=== PATIENT | male | born 1955 | race Caucasian/White ===

== ENCOUNTER 2020-06-22 10:34 | Outpatient (CLI) | payer MEDICARE, BC ==
--- NOTE | 2020-06-22 10:57 | XRAY Report ---
PROCEDURE: Foot 3 View LT INDICATIONS: PAIN IN LT FOOT TECHNIQUE: 3 views of the foot were acquired. COMPARISON: None. FINDINGS: Bones: No fractures or dislocations. No suspicious bony lesions. Soft tissues: No tibiotalar joint effusion. Achilles tendon appears normal. IMPRESSION: No trauma found, source of new left-sided foot pain is not identified. Reviewed by: Catrachito Martinez MD on 06/22/2020 10:56 AM PDT Approved by: Catrachito Martinez MD on 06/22/2020 10:56 AM PDT Station ID: [id number]
== END 2020-06-22 10:35 | disposition home or self-care (01) ==
LOC: DI.S 10:34
PROVIDERS: ATTEND Family Medicine
DX: M79.672 Pain in left foot (principal)

== ENCOUNTER 2020-07-27 14:21 | Outpatient (CLI) | payer MEDICARE, BC ==
[2020-07-27] MEDS ORDERED: IOVERSOL 320 100 ML VIAL IVP ONE ×2 (14:34→17:35)
[2020-07-27] MEDS ORDERED: IOVERSOL 320 50 ML VIAL ONE (14:34)
[2020-07-27 14:51] LABS: CALCIUM 9.3 mg/dL (8.5-10.3); CREATININE 0.9 mg/dL (0.6-1.2)
--- NOTE | 2020-07-27 16:02 | CT Report ---
PROCEDURE: Abdomen/Pelvis W INDICATIONS: ABDOMINAL PAIN CONTRAST: IV CONTRAST: Optiray 320 ml: 100 PO CONTRAST: Optiray 320 ml50 TECHNIQUE: After the administration of intravenous contrast, 5 mm thick sections acquired from the diaphragms to the symphysis. 5 mm thick coronal and sagittal reformats were acquired. For radiation dose reducti on, the following was used: automated exposure control, adjustment of mA and/or kV according to lisa ent size. COMPARISON: None. FINDINGS: Image quality: Excellent. ABDOMEN: Lung bases: Lung bases are clear. Heart size is normal. Coronary atherosclerosis Solid organs: Liver and spleen are normal in size and enhancement. Gallbladder appears normally dis tended without wall thickening or adjacent inflammatory change. Biliary system is non dilated. Panc reas enhances normally. No adrenal nodules. No hydronephrosis or urinary tract calculus. Peritoneum and bowel: Sigmoid diverticulosis. And anterolateral aspect of the inferior most abdomen, just medial to the left inguinal canal, there is a focus of fat stranding and fluid adjacent to a villa rt segment of the sigmoid. This is consistent with a small focus of diverticulitis. There is no other pericolonic or mesenteric inflammatory change. No findings of obstruction. Nodes and vessels: No retroperitoneal or mesenteric adenopathy by size criteria. Aorta and inferior vena cava are normal in size. Miscellaneous: No ventral hernia. PELVIS: Genitourinary: Bladder wall thickness is normal. Prostate unremarkable. Miscellaneous: Bilateral small fat-containing inguinal hernias. Bones: No suspicious bony lesions. No vertebral body compression fractures. IMPRESSION: Findings consistent with uncomplicated sigmoid diverticulitis. Follow-up to clinical resolution is re commended. Colonoscopy should be performed upon resolution of acute inflammation to help exclude the presence of an underlying mass. Findings were discussed with Dr. Monica Muniz M.D. at 1600 PST. Reviewed by: Bull Gonzalez MD on 07/27/2020 4:01 PM PDT Approved by: Bull Gonzalez MD on 07/27/2020 4:01 PM PDT Station ID: [id number]
[2020-07-27] MEDS ORDERED: IOVERSOL 320 50 ML VIAL PO ONE (17:35)
== END 2020-07-27 14:22 | disposition home or self-care (01) ==
LOC: DI 14:21
PROVIDERS: ATTEND Nurse Practitioner Family
DX: K57.32 Diverticulitis of large intestine without perforation or abscess without bleeding (principal)
CPT/HCPCS: 36415; 74177; 80048; Q9967

== ENCOUNTER 2020-09-17 09:09 | Day surgery (SDC) | payer MEDICARE, BC ==
[~2020-09-17 09:09] MED LIST: LACTATED RINGERS 1,000 ML IV ONE
[2020-09-17] MEDS ORDERED: fentaNYL 250 MCG/5 ML VIAL IVP ONE (09:10)
[2020-09-17] MEDS ORDERED: MIDAZOLAM 2 MG/2 ML VIAL IVP ONE (09:10)
[2020-09-17] MEDS ORDERED: LACTATED RINGERS 1,000 ML IV ONE (11:20)
[2020-09-17 11:40] VITALS: BP 105/82
== END 2020-09-17 09:10 | disposition home or self-care (01) ==
LOC: SDS 09:09
PROVIDERS: ATTEND Surgery
DX: Z09 Encounter for follow-up examination after completed treatment for conditions other than malignant neoplasm (principal); K57.30 Diverticulosis of large intestine without perforation or abscess without bleeding; K40.20 Bilateral inguinal hernia, without obstruction or gangrene, not specified as recurrent; I10 Essential (primary) hypertension; F10.11 Alcohol abuse, in remission; F17.200 Nicotine dependence, unspecified, uncomplicated; Z87.19 Personal history of other diseases of the digestive system
CPT/HCPCS: 45378; J3010; J7120

== ENCOUNTER 2020-11-12 20:05 | Outpatient (CLI) | payer MEDICARE, BC | END 2020-11-12 20:06 | disposition home or self-care (01) | LOC: COV 20:05 | PROVIDERS: ATTEND Surgery | DX: Z01.812 Encounter for preprocedural laboratory examination (principal); K40.90 Unilateral inguinal hernia, without obstruction or gangrene, not specified as recurrent; Z20.822 Contact with and (suspected) exposure to COVID-19 ==

== ENCOUNTER 2020-11-16 07:46 | Day surgery (SDC) | payer MEDICARE, BC ==
[2020-11-16] MEDS ORDERED: LACTATED RINGERS 1,000 ML IV ONE ×2 (08:00→10:50)
--- NOTE | 2020-11-16 08:43 | ANESTHESIA ---
Pre-Anesthesia VS, & Labs - Diagnosis right inguinal hernia - Procedure right inguinal hernia repair Vital Signs: Temp Pulse Resp BP Pulse Ox 36.2 C L 52 L 16 150/88 H 97 11/16/20 08:00 11/16/20 08:00 11/16/20 08:00 11/16/20 08:00 11/16/20 08:00 Height: 5 ft 8 in Weight (kg): 86.3 kg Body Mass Index: 28.9 BMI Classification: Overweight - NPO >8 hours Home Medications and Allergies Lovastatin 40 mg PO DAILY 09/17/20 Metoprolol Succinate [Toprol Xl] 50 mg PO DAILY 09/17/20 Allergies/Adverse Reactions: Allergies Allergy/AdvReac Type Severity Reaction Status Date / Time Penicillins Allergy Hives Verified 05/09/15 12:18 Anes History & Medical History - Anesthetic History Anesthesia Complications: reports: No previous complications - Medical History Cardiovascular: reports: Hypertension, High cholesterol Pulmonary: reports: None Gastrointestinal: reports: GERD (with certain foods), Diverticulitis Urinary: reports: None Neuro: reports: None Musculoskeletal: reports: Osteoarthritis, Chronic back pain Endocrine/Autoimmune: reports: None Blood Disorders: reports: None Skin: reports: None Smoking Status: Former smoker (quit 10 years ago. 38 year pack history) Psychosocial: reports: Alcohol (recovering alcoholic), Cannabis (daily use) History of Cancer?: No - Surgical History General: Colonoscopy, Other (Left IHR) Exam General: Alert, Oriented x3, Cooperative, No acute distress Dental: WNL, Other (braces) Mouth Openin Fingerbreadth Neck Mobility: Normal Mallampati classification: II Thyromental Distance: 4-6 cm Respiratory: Lungs clear, Normal breath sounds, No respiratory distress, No accessory muscle use Cardiovascular: Regular rate, Normal S1, Normal S2, No murmurs Mental/Cognitive Status: Alert/Oriented X3, Normal for patient Plan Anesthesia Type: General Consent for Procedure(s) Verified and Reviewed: Yes Code Status: Attempt Resuscitation ASA classification: 2-Mild systemic disease Is this case an emergency?: No
[2020-11-16] MEDS ORDERED: ceFAZolin 2 GM/50 ML 2 GM/50 ML BAG IV ONE (08:51)
[2020-11-16] MEDS ORDERED: ONDANSETRON 4 MG/2 ML VIAL IVP PRN ×2 (09:02→10:18)
[2020-11-16] MEDS ORDERED: fentaNYL 100 MCG/2 ML VIAL IVP PRN (09:02)
[2020-11-16] MEDS ORDERED: NALOXONE 0.4 MG/ML VIAL IVP PRN (09:02)
[2020-11-16] MEDS ORDERED: MORPHINE 2 MG/ML CARPUJECT IVP PRN (09:02)
[2020-11-16] MEDS ORDERED: HYDROmorphone 0.5 MG/0.5 ML SYRINGE IVP PRN (09:02)
[2020-11-16] MEDS ORDERED: ATROPINE ABBOJECT 1 MG/10 ML SYRINGE IVP PRN (09:02)
[2020-11-16] MEDS ORDERED: BUPIVACAINE 0.5%-EPI 1:200000 PF 30 ML VIAL SUBQ ONE ×2 (09:03→10:00)
[2020-11-16] MEDS ORDERED: LIDOCAINE 1% 50 ML MDV SUBQ ONE ×3 (09:04)
[2020-11-16] MEDS ORDERED: BUPIVACAINE 0.5%-EPI 1:200000 PF 30 ML VIAL ONE (09:10)
[2020-11-16] MEDS ORDERED: LIDOCAINE 1% 50 ML MDV ONE (09:10)
[2020-11-16] MEDS ORDERED: ceFAZolin 1 GM VIAL ONE (09:10)
[2020-11-16] MEDS ORDERED: DEXAMETHASONE 4 MG/ML VIAL ONE (09:15)
[2020-11-16] MEDS ORDERED: ROCURONIUM 50 MG/5 ML VIAL ONE (09:15)
[2020-11-16] MEDS ORDERED: SUGAMMADEX 200 MG/2 ML VIAL IVP ONE (09:15)
[2020-11-16] MEDS ORDERED: LIDOCAINE-MPF 2% 5 ML VIAL ONE (09:15)
[2020-11-16] MEDS ORDERED: PROPOFOL 200 MG/20 ML VIAL IVP ONE (09:15)
[2020-11-16] MEDS ORDERED: MIDAZOLAM 2 MG/2 ML VIAL ONE (09:18)
[2020-11-16] MEDS ORDERED: KETOROLAC 30 MG/ML VIAL ONE (09:46)
[2020-11-16] MEDS ORDERED: ceFAZolin 1 GM VIAL IR ONE (09:52)
[2020-11-16] MEDS ORDERED: LACTATED RINGERS 1,000 ML IV SCH (10:00)
[2020-11-16] MEDS ORDERED: GLYCOPYRROLATE 1 MG/5 ML VIAL ONE (10:11)
[2020-11-16] MEDS ORDERED: NEOSTIGMINE 1 MG/1 ML 10 ML MDV ONE (10:11)
--- NOTE | 2020-11-16 10:17 | OPERATIVE REPORT ---
Operative Report - General Procedure Date: 11/16/20 Planned Procedure: Right inguinal hernia repair Pre-Op Diagnosis: Symptomatic right inguinal hernia Procedure Performed: Right inguinal hernia repair Post Op Diagnosis: Same - Procedure Note Primary Surgeon: Delphine Anesthesia Provider: Sia Pearl CRNA Anesthesia Technique: General LMA, Local Pathology: None Estimated Blood Loss (mL): 5 Findings: Moderate indirect right inguinal hernia Complications: None apparent - Other Other Information/Narrative: After obtaining informed consent, the patient is brought to the operating room and placed in the supine position on the operating table. Following successful induction of general endotracheal anesthesia, appropriate padding of all bony prominences, and placement of appropriate monitors, the abdomen was prepped and draped in the standard surgical fashion. A timeout was held per scope protocol. All elements of the surgical safety checklist were followed before, during, and after the procedure. We began the procedure by infiltrating a mixture of local anesthetics medial to the anterior superior iliac spine on the right. This was done to create an ileal inguinal nerve block. We then selected a site for an incision in the right lower quadrant just superior and lateral to the right pubic tubercle. This area was anesthetized with additional local anesthetic and an incision was created here.The incision was carried down through the skin and subcutaneous tissue to reveal the fascia of the external oblique aponeurosis. Retractor was placed and the aponeurosis was opened in direction of its fibers. The ilioinguinal nerve was immediately identified. We continued by identifying the spermatic cord and gently encircling it with a Marilyn drain. The hernia sac was carefully dissected free from the cord structures and was noted to be in the inferior medial position. The sac was in the indirect position. We carefully dissected the spermatic cord from the sac. The hernia sac was then placed back into the abdominal cavity. We elected to repair the hernia with a large Prolene hernia system mesh implant. This was dipped in Ancef containing solution and then deployed into the defect. The posterior leaflet was straightened and flattened in the preperitoneal space. The anterior leaflet was then nicked medially to provide a place for the spermatic cord and then closed with a Vicryl suture. The more inferior aspect was then sewn to Fam's ligament medially. Laterally it was tucked under the external beak aponeurosis. The wound was checked for hemostasis and irrigated with warm saline solution. It was aspirated free of all fluid and particulate matter. The extra oblique aponeurosis was then closed with a running locking Vicryl suture Charito's fascia was closed with Vicryl suture and Monocryl stitches were placed in the skin. All sponge, needle, and instrument counts were correct at the conclusion of the case. The patient was allowed awaken from anesthesia without difficulty and taken to the postanesthesia care unit in good condition.
[2020-11-16] MEDS ORDERED: oxyCODONE 5 MG TABLET PO PRN (10:18)
[2020-11-16] MEDS ORDERED: ACETAMINOPHEN 325 MG TABLET PO PRN (10:18)
[2020-11-16] MEDS ORDERED: IBUPROFEN 600 MG TABLET PO PRN (10:18)
--- NOTE | 2020-11-16 10:42 | ANESTHESIA POST OP EVALUATION ---
Anesthesia Post Eval - Post Anesthesia Eval Vitals: Last Vital Signs Temp 36.5 C 11/16/20 10:40 Pulse 64 11/16/20 10:40 Resp 20 11/16/20 10:40 BP 152/97 H 11/16/20 10:40 Pulse Ox 98 11/16/20 10:40 CV Function Including HR & BP: positive: Stable Pain Control: positive: Satisfactory Nausea & Vomiting: positive: Negative Mental Status: positive: Baseline Respiratory Status: Airway Patent Hydration Status: Satisfactory Anesthesia Complications: positive: None
[2020-11-16 11:17] VITALS: BP 143/91
== END 2020-11-16 07:47 | disposition home or self-care (01) ==
LOC: SDS 07:46
PROVIDERS: ATTEND Surgery
DX: K40.90 Unilateral inguinal hernia, without obstruction or gangrene, not specified as recurrent (principal); I10 Essential (primary) hypertension; Z87.891 Personal history of nicotine dependence; E66.3 Overweight; Z68.28 Body mass index [BMI] 28.0-28.9, adult
CPT/HCPCS: 49505; C1781; J0690; J7120

== ENCOUNTER 2022-11-10 08:14 | Outpatient (CLI) | payer MEDICARE, BC ==
--- NOTE | 2022-11-10 10:04 | Ultrasound Report ---
PROCEDURE: Aorta Screening INDICATIONS: EX SMOKER TECHNIQUE: Real time scanning was performed of the aorta and iliac arteries, with image documentatio n. COMPARISON: None FINDINGS: Aorta: Proximal aortic diameter measures 2.6 x 2.2 cm. Mid-aorta measures 2.2 x 2.1 cm. Distal aor tic diameter is 1.9 x 1.8 cm. Iliac arteries: Right common iliac artery measures 1.3 cm. Left common iliac artery measures 1.4 cm . IMPRESSION: No abdominal aortic aneurysm. Proximal aorta measures 2.6 cm. Consider 5 year follow-up. There is ath erosclerosis. Reviewed by: Prasanna Qureshi MD on 11/10/2022 10:02 AM PST Approved by: Prasanna Qureshi MD on 11/10/2022 10:02 AM PST Station ID: [id number]
--- NOTE | 2022-11-10 11:38 | CT Report ---
PROCEDURE: Low Dose Lung Cancer Screen INDICATIONS: EX SMOKER TECHNIQUE: Noncontrast low-dose axial images were acquired from the pulmonary apices to the posterior costophren ic angles. Multiplanar MIP reformats were then reconstructed. For radiation dose reduction, the follo wing was used: automated exposure control, adjustment of mA and/or kV according to patient size. COMPARISON: None. FINDINGS: Image quality: Excellent. Lungs and pleura: No suspicious lung nodules. There are subpleural scars and atelectasis in the righ t middle lobe, lingula and both lower lobes. Mediastinum: Heart size is normal. Moderate coronary artery calcification. No pericardial effusion. No mediastinal adenopathy by size criteria. Thoracic aorta and central pulmonary arteries are norm al in size. Esophagus is normal in caliber. Small hiatal hernia. Bones and chest wall: No suspicious bony lesions. No vertebral body compression fractures. No axil angela or supraclavicular adenopathy by size criteria. The thyroid is normal in size and there are no incidental findings. Abdomen: Visualized upper abdomen solid organs and bowel loops appear normal in the absence of contr ast. IMPRESSION: 1. No suspicious lung nodules. ACR BI-RADS Category 1. Recommend annual screening up CT in 12 months. 2. Moderate coronary calcification. Reviewed by: Carline Garcia MD on 11/10/2022 11:37 AM PST Approved by: Carline Garcia MD on 11/10/2022 11:37 AM PST Station ID: [id number]
--- NOTE | 2022-11-10 12:24 | Ultrasound Report ---
PROCEDURE: Pelvic Limited or F/U INDICATIONS: INGUINAL PAIN TECHNIQUE: Real-time transabdominal scanning was performed of the right inguinal region, with image documentatio n. COMPARISON: CT abdomen and pelvis 07/27/2020. FINDINGS: No right inguinal hernia is seen. Possible mass. IMPRESSION: No right inguinal hernia is seen. Reviewed by: Abhinav Alexander MD on 11/10/2022 12:22 PM PST Approved by: Abhinav Alexander MD on 11/10/2022 12:22 PM PST Station ID: [id number]
== END 2022-11-10 08:15 | disposition home or self-care (01) ==
LOC: DI 08:14
PROVIDERS: ATTEND Nurse Practitioner Family
DX: Z12.2 Encounter for screening for malignant neoplasm of respiratory organs (principal); Z13.6 Encounter for screening for cardiovascular disorders; R10.2 Pelvic and perineal pain; I25.10 Atherosclerotic heart disease of native coronary artery without angina pectoris; Z87.891 Personal history of nicotine dependence

== ENCOUNTER 2022-11-16 10:39 | Outpatient (CLI) | payer MEDICARE, BC ==
[2022-11-16] MEDS ORDERED: DIATRIZOATE MEGLU/DIATRIZO SOD 30 ML BOTTLE PO ONE ×2 (11:05→14:58)
[2022-11-16] MEDS ORDERED: iohexoL-300 100 ML VIAL ONE (11:05)
[2022-11-16 11:23] LABS: POTASSIUM 4.3 mmol/L (3.5-5.0)
[2022-11-16] MEDS ORDERED: iohexoL-300 100 ML VIAL IVP ONE (14:58)
--- NOTE | 2022-11-17 10:28 | CT Report ---
PROCEDURE: ABDOMEN/PELVIS W INDICATIONS: GROIN MASS CONTRAST: omni 300 100ml TECHNIQUE: After the administration of oral and intravenous contrast, 5 mm thick sections acquired from the diap hragms to the symphysis. 5 mm thick coronal and sagittal reformats were acquired. For radiation dos e reduction, the following was used: automated exposure control, adjustment of mA and/or kV accordin g to patient size. COMPARISON: CT of abdomen and pelvis with, 07/27/2020. Ultrasound pelvis, 11/10/2022 FINDINGS: Image quality: Excellent. ABDOMEN: Lung bases: There are dependent atelectasis at lung bases. Heart size is normal. Solid organs: There is a 1 cm indeterminate hypodense nodule in segment 4, unchanged since the last exam, most likely a cyst. Mild hepatic steatosis. Liver is normal in size. Spleen is normal in size a nd enhancement. There is a small calcified gallstone in gallbladder. Biliary system is non dilated. Pancreas enhances normally. No adrenal nodules. There are bilateral parapelvic renal cysts. Kidneys demonstrate normal size and enhancement, without hydronephrosis. Peritoneum and bowel: Bowel loops demonstrate normal wall thickness and caliber. Mild diverticulosis . No acute diverticulitis. No free fluid or air. Nodes and vessels: There is a 1 cm mesenteric lymph node in the right abdomen (series 3 image 42), u nchanged since 07/27/2020. No retroperitoneal adenopathy by size criteria. Aorta and inferior vena ca va are normal in size. Miscellaneous: No ventral hernias. PELVIS: Genitourinary: Bladder wall thickness is normal. Miscellaneous: No inguinal adenopathy. Small fat-containing right inguinal hernia. Bones: No suspicious bony lesions. No vertebral body compression fractures. Mild levoscoliosis. Se nate degenerative disc and facet disease in lumbar spine. IMPRESSION: 1. No mass is identified in abdomen or pelvis. 2. A 1 cm mesenteric lymph node in the right abdomen, unchanged, most likely reactive. 3. Cholelithiasis. 4. Mild hepatic steatosis. 5. Mild diverticulosis without diverticulitis. Bilateral parapelvic renal cysts. 6. Small fat-containing right inguinal hernia. Reviewed by: Carline Garcia MD on 11/17/2022 10:27 AM PST Approved by: Carline Garcia MD on 11/17/2022 10:27 AM PST Station ID: [id number]
== END 2022-11-16 10:40 | disposition home or self-care (01) ==
LOC: LAB 10:39
PROVIDERS: ATTEND Nurse Practitioner Family
DX: R19.03 Right lower quadrant abdominal swelling, mass and lump (principal); K80.20 Calculus of gallbladder without cholecystitis without obstruction; K76.0 Fatty (change of) liver, not elsewhere classified; K57.90 Diverticulosis of intestine, part unspecified, without perforation or abscess without bleeding; K40.90 Unilateral inguinal hernia, without obstruction or gangrene, not specified as recurrent
CPT/HCPCS: 36415; 74177; 80048; Q9963; Q9967

== ENCOUNTER 2023-12-26 10:42 | Outpatient (CLI) | payer MEDICARE, BC ==
--- NOTE | 2023-12-26 15:19 | CT Report ---
PROCEDURE: Lung Cancer Screen INDICATIONS: FORMER SMOKER TECHNIQUE: A CT scan of the chest was performed. Intravenous contrast media was not administered. Images were re corded and evaluated at appropriate window settings. Reformats: axial MIP of the chest, coronal and s agittal. For radiation dose reduction, the following was used: automated exposure control, adjustment of mA and/or kV according to patient size. COMPARISON: Lung cancer screening chest CT 11/10/2022. FINDINGS: Image quality: Excellent. Prior cancer history: Unsure. Lungs and pleura: No pleural effusions. No pneumothorax. No suspicious pulmonary nodules which requi re follow up. Mediastinum: Heart size is normal. No pericardial effusion. No large vessel abnormality. No mediastin al adenopathy by size criteria. Three vessel coronary artery calcifications. Chest wall and lower neck: Thyroid is unremarkable. No axillary or supraclavicular adenopathy by size . Bones: No aggressive osseous abnormality. Upper Abdomen: Unremarkable. IMPRESSION: Lung RAD: 1 - Negative. Recommendation: Continue annual screening in 12 Months with LDCT Non-Lung Significant Findings: Coronary Arterial Calcification - Moderate or Severe. Reviewed by: Abhinav Alexander MD on 12/26/2023 3:18 PM PST Approved by: Abhinav Alexander MD on 12/26/2023 3:18 PM PST Station ID: [id number]
== END 2023-12-26 10:43 | disposition home or self-care (01) ==
LOC: DI 10:42
PROVIDERS: ATTEND Registered Nurse
DX: Z12.2 Encounter for screening for malignant neoplasm of respiratory organs (principal); Z87.891 Personal history of nicotine dependence; I25.10 Atherosclerotic heart disease of native coronary artery without angina pectoris

== ENCOUNTER 2024-05-16 15:33 | Outpatient (CLI) | payer MEDICARE, BC | END 2024-05-16 15:34 | disposition home or self-care (01) | LOC: RT 15:33 | PROVIDERS: ATTEND Internal Medicine Cardiovascular Disease | DX: R93.89 Abnormal findings on diagnostic imaging of other specified body structures (principal); I25.10 Atherosclerotic heart disease of native coronary artery without angina pectoris | CPT/HCPCS: 93005 ==

== ENCOUNTER 2024-07-09 12:39 | Outpatient (CLI) | payer MEDICARE, BC ==
--- NOTE | 2024-07-09 13:09 | CARDIAC PROCEDURE NOTE ---
Stress Test Report Service Date: 07/09/24 Service Time: 13:00 Ordering Provider: Rui Torres MD Indication for Test: Risk stratification in patient with cardiac risk factors found to have coronary calcification on screening chest CT. Significant Medical History: Wilbert is referred for an exercise treadmill test (ETT) today to follow-up on the findings on a low-dose screening chest CT [facility] that showed no evidence of lung pathology, but did show moderate to severe coronary calcification. He was seen by Dr. Torres, who added a daily aspirin to his pre-existing regimen of daily losartan 25 mg and rosuvastatin 20 mg; I do not have access to his fasting lipid panel data. He reports remaining very active, with a diverse 30-40 minute exercise regimen that he pursues 34 times weekly, that includes core work, bicycling and high repetition low level weight lifting. He remains very active at home and in his neighborhood and does not experience chest pain, exertional dyspnea, GI symptoms, lightheadedness or reduction in stamina. Cardiac Risk Factors: Positive for history of hypertension and hyperlipidemia (both treated for the past 3-4 years), positive for family history of coronary artery disease in mother (history of ischemic cardiomyopathy post bypass surgery) and possibly his father (history of sudden ), cigarette smoking (1 pack/day for about 38 years though quit 12 years ago); no history of diabetes. Type of Stress Test: Exercise Treadmill Test (ETT) Procedure: -Exercise Treadmill Test- After signing informed consent, the patient performed treadmill exercise using a Edin protocol. The patient exercised for 9 minutes 26 seconds and achieved a peak heart rate of 145 (96 percent predicted maximum heart rate for age), and an estimated workload of 10.9 METS. The test was terminated due to fatigue/shortness of breath. Resting heart rate: 70 Peak heart rate: 145 Normal response to exercise. Resting BP: 163/77 Peak BP: 229/84 Elevated resting systolic BP with a hypertensive BP response to exercise. Room air oxygen saturation during exercise ranged between 94-96%. Rhythm during exercise: Sinus rhythm throughout, with no observed ectopy (Zero PVCs per computer). Symptoms: He denied any exertional chest heaviness/discomfort/pain. EKG at rest showed normal sinus rhythm with early precordial R/S transition, left atrial abnormality and slight ST elevation in some leads, most suggestive of normal variant early repolarization. EKG at peak stress showed J-point depression with upsloping ST segments, likely NOT meeting diagnostic EKG criteria for ischemia. In Recovery HR rapidly/normally decreased almost to resting level, with slower BP decrease (HR 81, BP165/106 at 7:00). No imaging was ordered with this stress test. Reynaldo Gaona MD, was present throughout this treadmill stress study and supervised it in its entirety. Summary: 1) Exercise tolerance was well above average for age and sex as evidenced by DENI of 30%. 2) Normal resting EKG. 3) Adequate level of exercise was achieved on this treadmill stress test. 4) Abnormal hypertensive BP response to exercise. 5) No clear ischemic changes by EKG criteria were seen at peak stress. 6) No imaging was ordered with this test. Conclusions and Recommendations: 1) Overall these are reassuring ETT results, with exercise time well above average for age, a robust hemodynamic response and no symptoms suggestive of ischemia. 2) The computer analysis of patient's upsloping ST depression did not meet criteria for ischemia. 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
== END 2024-07-09 12:40 | disposition home or self-care (01) ==
LOC: DI 12:39
PROVIDERS: ATTEND Internal Medicine Cardiovascular Disease
DX: I25.10 Atherosclerotic heart disease of native coronary artery without angina pectoris (principal); I10 Essential (primary) hypertension; E78.5 Hyperlipidemia, unspecified; Z82.49 Family history of ischemic heart disease and other diseases of the circulatory system; Z87.891 Personal history of nicotine dependence
CPT/HCPCS: 93017